=== PATIENT | female | born 1965 | race Caucasian/White ===

== ENCOUNTER 2022-05-21 22:46 | Inpatient (IN) | payer OTHER, SELFPAY ==
[2022-05-21 23:17] VITALS: BP 115/71; PULSE 65; RESP 16; TEMP 36.2; O2SAT 95; BMI 48.5
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
[2022-05-22 06:00] VITALS: BP 132/72; PULSE 61; TEMP 36.4; O2SAT 96
[2022-05-22] MEDS: Perphenazine 4 MG TABLET PO ×2 (09:15→20:45)
[2022-05-22] MEDS: Sertraline HCL 25 MG TABLET PO (09:15)
[2022-05-22] MEDS: Indomethacin 25 MG CAPSULE 50 MG PO ×3 (09:15→20:43)
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
[2022-05-22 19:18] VITALS: BP 141/65; PULSE 65; TEMP 36.3; O2SAT 96
[2022-05-22] MEDS: traZODone HCL 50 MG TABLET PO (20:45)
[2022-05-23] MEDS: hydrOXYzine HCL 25 MG TABLET PO (05:23)
[2022-05-23 06:00] VITALS: BP 131/74; PULSE 67; RESP 18; TEMP 36.3; O2SAT 95
--- NOTE | 2022-05-23 07:20 | PM.IMCN ---
History of Present Illness Data of Consult Service Date: 05/23/22 Primary Care Provider: Unknown Physician HPI Reason for consult: Medical evaluation A 56 years old lady with PMH of psychiatric disorder who was directly admitted to inpatient psych unit. The patient was interviewed for any medical problems which she denies. She reports that she has been having a rash for the last 5-6 days mainly extending in her chest wall and back with significant itching. +She denies any fever chills, shortness of breath, chest pain, nausea, vomiting, joint pain, change in bowel habit or urinary symptoms. Hospitalist team was asked to evaluate the patient for medical problems. Review of Systems Review of Systems: No fever, chills or weakness No chest pain, palpitation No shortness of breath or coughing No abdominal pain, nausea or vomiting No urinary symptoms Generalized rash to her trunk PMFSH Medical History Psychotic disorder Social History Household Members: None Housing: Apartment Do you presently have visiting nurse or other home services: No Patient Tobacco Use Status: Never used Tobacco Use of substances other than those prescribed or required for medical reasons: No Currently Displaying Signs/Symptoms of Drug Intoxication Withdrawal: No Have you been hit, kicked, punched, or otherwise hurt by someone within the past year? If so, by whom?: No Spiritual Healthcare Practices: N/A Confucianist Healthcare Practices: N/A Cultural Healthcare Practices: N/A Advance Directives: No Advance Directives Information Provided: No Advance Directives on File: No Do you have thoughts of harming others: None Do you have a plan to hurt others: No Plan Recently lost weight without trying: No Eating poorly because of decreased appetite: No Nutrition Risks: No Nutritional Risk Patient : No : No Poor oral hygiene: No Meds Allergies Allergy/AdvReac Type Severity Reaction Status Date / Time No Known Allergies Allergy Verified 05/21/22 23:08 Active Medications: Current Medications Acetaminophen (Acetaminophen 325 Mg Tablet) 650 mg PO Q6H PRN PRN Reason: Headache/Pain Mild Scale (1-3) Al Hydroxide/Mg Hydroxide (Magnesium Hydrox/Alum Hydrox 30 Ml Oral.Susp) 30 ml PO Q6H PRN PRN Reason: Heartburn/Nausea Diphenhydramine HCl (Diphenhydramine Hcl 25 Mg Tablet) 50 mg PO Q4H PRN PRN Reason: agitation Haloperidol (Haloperidol 5 Mg Tablet) 5 mg PO Q4H PRN PRN Reason: agitation Hydroxyzine HCl (Hydroxyzine Hcl 25 Mg Tablet) 25 mg PO Q6H PRN PRN Reason: Anxiety Last Admin: 05/23/22 05:23 Dose: 25 mg Indomethacin (Indomethacin 25 Mg Capsule) 50 mg PO TID [facility] Last Admin: 05/22/22 20:43 Dose: 50 mg Lorazepam (Lorazepam 1 Mg Tablet) 2 mg PO Q4H PRN PRN Reason: agitation Magnesium Hydroxide (Milk Of Magnesia 30 Ml Oral.Susp) 30 ml PO DAILY PRN PRN Reason: Constipation Nicotine Polacrilex (Nicotine Polacrilex 2 Mg Gum) 4 mg BUCCAL Q2H PRN PRN Reason: Nicotine Cravings Ondansetron HCl (Ondansetron Odt 4 Mg Tab.Rapdis) 4 mg TRANSLINGU TID PRN PRN Reason: nausea/vomiting Perphenazine (Perphenazine 8 Mg Tablet) 8 mg PO BEDTIME [facility] Sertraline HCl (Sertraline Hcl 25 Mg Tablet) 25 mg PO DAILY [facility] Last Admin: 05/22/22 09:15 Dose: 25 mg Trazodone HCl (Trazodone Hcl 50 Mg Tablet) 50 mg PO BEDTIME PRN PRN Reason: Insomnia Last Admin: 05/22/22 20:45 Dose: 50 mg Home Medications Medication Instructions Recorded Confirmed Last Taken Type indomethacin 50 mg capsule 1 cap PO TID 05/21/22 05/21/22 Unknown History ondansetron 4 mg disintegrating 1 tab PO TID PRN nausea/vomiting 05/21/22 05/21/22 Unknown History tablet perphenazine 4 mg tablet 1 tab PO BID 05/21/22 05/21/22 Unknown History sertraline 25 mg tablet 1 tab PO DAILY 05/21/22 05/21/22 Unknown History Physical Exam Vital Signs and Narrative: Vital Signs: Last Vital Signs Temp 97.4 F 05/23/22 06:00 Pulse 67 05/23/22 06:00 Resp 18 05/23/22 06:00 BP 131/74 05/23/22 06:00 Pulse Ox 95 05/23/22 06:00 O2 Del Method 05/22/22 19:18 BMI result Body Mass Index 48.5 Const: Other: Constitutional : Alert, oriented, not in distress Neck : Normal inspection, Supple Cardiovascular : RRR, no JVP, no lower extremity edema Respiratory : fair bilateral air entry, no crackles, wheezes or rhonchi Gastrointestinal: soft, lax, Normal bowel sounds, Non tender Skin : Warm, Dry, chest wall, abdomen and back macules with no surrounding erythema or drainage Neurological : Alert & oriented x3, No focal deficit , CN 2-12 within normal Assessment and Plan (1) Psychotic disorder: Status: Acute Plan A 56 years old lady with PMH of psychiatric disorder who was directly admitted to inpatient psych unit. Skin rash Seems to be an allergic reaction Start Benadryl p.o. as needed Psychiatric disorder Followed by Psychiatry team Thank you for the consult, please contact hospitalist team with any further questions.
[2022-05-23] MEDS: Sertraline HCL 25 MG TABLET PO (09:15)
[2022-05-23] MEDS: Indomethacin 25 MG CAPSULE 50 MG PO ×3 (09:15→22:37)
[2022-05-23] MEDS: diphenhydrAMINE HCL 25 MG TABLET PO (15:18)
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
[2022-05-23 18:00] VITALS: BP 136/68; TEMP 36.1
[2022-05-23] MEDS: Magnesium Hydrox/Alum Hydrox 30 ML ORAL.SUSP PO (21:10)
[2022-05-23] MEDS: traZODone HCL 50 MG TABLET PO (22:31)
[2022-05-23] MEDS: Perphenazine 8 MG TABLET PO (22:32)
[2022-05-24 06:00] VITALS: BP 129/69; PULSE 63; RESP 18; TEMP 36.3; O2SAT 96
[2022-05-24] MEDS: hydrOXYzine HCL 25 MG TABLET PO (06:02)
[2022-05-24] MEDS: Indomethacin 25 MG CAPSULE 50 MG PO ×3 (08:05→20:50)
[2022-05-24] MEDS: Sertraline HCL 25 MG TABLET PO (08:06)
[2022-05-24 08:44] LABS: Estimated Average Glucose 120 mg/dL; Hemoglobin A1c % 5.8 %
[2022-05-24 08:46] LABS: Cholesterol 150 mg/dL; HDL Cholesterol 27 mg/dL; LDL Cholesterol Calculated 109 mg/dl; Triglycerides 71 mg/dL
[2022-05-24 08:51] LABS: Reflex LDLD? No
--- NOTE | 2022-05-24 13:28 | HO.PSYCHPN ---
Subjective Subjective Date of Service: 05/24/22 Reason For Visit: Psychosis Interim History: seen with Roads Supervisor Pt says no AH, no SI. Pt says she did knock on peoples doors (she said was not at 3am; Sister says pt was knocking on doors at late night) but only because she got stung by a wasp and felt confused. She denies med side-effects, including making her tired during the day since she works. She would like to discharge. Mental Status Exam Mental Status Exam Narrative: Pt is alert and oriented; behavior is cooperative and calm; patient is not in distress; dressed in casual attire with unkempt hair but adequate hygiene; mood is described as ok and affect constricted, anxious; eye contact appropriate; Speech is normal rate, volume and prosody and not pressured; no psychomotor agitation/retardation present; thought process is somewhat scattered, but goal directed; Thought content is on when she will discharge; otherwise pertinent to relevant topics when asked; no delusional content or paranoid ideations expressed; denies any SI or HI; denies any AVH. Patients insight and judgment are impaired. Diagnostics Vital Signs (24Hr): Vital Signs - 24 hr 05/23/22 18:00 05/24/22 06:00 Temperature 97 F 97.4 F Pulse Rate 63 Respiratory Rate 18 Blood Pressure 136/68 129/69 Pulse Oximetry 96 BMI result Body Mass Index 48.5 Labs Labs: Laboratory Results - last 48 hr 05/24/22 05/24/22 08:20 08:20 Estimat Average Glucose 120 Hemoglobin A1c % 5.8 Triglycerides 71 Cholesterol 150 LDL Cholesterol, Calc 109 HDL Cholesterol 27 Medications Medications Current Medications Acetaminophen (Acetaminophen 325 Mg Tablet) 650 mg PO Q6H PRN PRN Reason: Headache/Pain Mild Scale (1-3) Al Hydroxide/Mg Hydroxide (Magnesium Hydrox/Alum Hydrox 30 Ml Oral.Susp) 30 ml PO Q6H PRN PRN Reason: Heartburn/Nausea Last Admin: 05/23/22 21:10 Dose: 30 ml Diphenhydramine HCl (Diphenhydramine Hcl 25 Mg Tablet) 50 mg PO Q4H PRN PRN Reason: agitation Diphenhydramine HCl (Diphenhydramine Hcl 25 Mg Tablet) 25 mg PO Q8H PRN PRN Reason: Itching Haloperidol (Haloperidol 5 Mg Tablet) 5 mg PO Q4H PRN PRN Reason: agitation Hydroxyzine HCl (Hydroxyzine Hcl 25 Mg Tablet) 25 mg PO Q6H PRN PRN Reason: Anxiety Last Admin: 05/24/22 06:02 Dose: 25 mg Indomethacin (Indomethacin 25 Mg Capsule) 50 mg PO TID [facility] Last Admin: 05/24/22 08:05 Dose: 50 mg Lorazepam (Lorazepam 1 Mg Tablet) 2 mg PO Q4H PRN PRN Reason: agitation Magnesium Hydroxide (Milk Of Magnesia 30 Ml Oral.Susp) 30 ml PO DAILY PRN PRN Reason: Constipation Nicotine Polacrilex (Nicotine Polacrilex 2 Mg Gum) 4 mg BUCCAL Q2H PRN PRN Reason: Nicotine Cravings Ondansetron HCl (Ondansetron Odt 4 Mg Tab.Rapdis) 4 mg TRANSLINGU TID PRN PRN Reason: nausea/vomiting Perphenazine (Perphenazine 8 Mg Tablet) 8 mg PO BEDTIME [facility] Last Admin: 05/23/22 22:32 Dose: 8 mg Sertraline HCl (Sertraline Hcl 25 Mg Tablet) 25 mg PO DAILY [facility] Last Admin: 05/24/22 08:06 Dose: 25 mg Trazodone HCl (Trazodone Hcl 50 Mg Tablet) 50 mg PO BEDTIME PRN PRN Reason: Insomnia Last Admin: 05/23/22 22:31 Dose: 50 mg Allergies Allergies Allergy/AdvReac Type Severity Reaction Status Date / Time No Known Allergies Allergy Verified 05/21/22 23:08 Assessment & Plan Assessment & Plan (1) Psychotic disorder: Status: Acute Code(s): F29 - Unspecified psychosis not due to a substance or known physiological condition Plan Patient seen with general internal medicine physician Patient is a 56-year-old Emirati-speaking female with history of mood lability who presents to [facility] ED with both her daughter and sister, who called crisis reporting patient is disorganized.? Patient assessed at [facility] ED where it was documented that Patient was found was found thrashing and rolling on the ground screaming when police brought her in.? Crisis note reports that once patient was in the ED, she was sitting calmly.? Here on M 5, patient is also sitting calmly and is cooperative, calm and with appropriate behavior.? Her thought process is mostly organized however general internal medicine physician says that her explanation things was somewhat scattered. Patient She denies any auditory hallucinations, visual hallucinations or aggressive behavior; She denies any SI ( Never ), or any hx of self-harm.? Patient also denies any paranoid worries about people following her or out to get her.? This is in contrast to Crisis note which reports information given by patient's sister Dolly and daughter Marni who say that patient has been aggressive towards the family, delusions, AH, anxiety and panic attacks.? The say she has not taking medications since 2019.? They also say that patient has auditory hallucinations and has paranoid delusions that people are out to get her. Patient is somewhat a poor historian and says she has been taking her medications up until this Monday; however review of prescriptions seems to indicate that none has been filled for quite some time. 05/23 Patient is calm, in behavioral control. Continues to deny any AVH; denies SI; denies paranoid thoughts. Patient signed a release of information to talk with son, daughter and sister so will get collateral Plan: CV Q 15 minute checks , Perphenazine 8 mg q.h.s. (has been on this in the past, reportedly helpful; Will switch dosing to bedtime since patient complains of daytime sedation Will dc Zoloft for now; while patient may needed eventually, it is currently to low-dose to be helpful and did not want a risk triggering emeli Continue indomethacin Will need collateral Patient educated on: diagnosis I spent minutes with the patient and/or on the patient floor today, greater than?50% of which was spent counseling/coordinating care. Patient educated on: diagnosis and medication risk/benefits Informed Consent: further education needed Reason for contiued inpatient stay Substantial Risk for: stable for discharge
[2022-05-24 18:00] VITALS: BP 95/60; PULSE 88; RESP 18; TEMP 36.1; O2SAT 99
[2022-05-24] MEDS: traZODone HCL 50 MG TABLET PO (20:50)
[2022-05-24] MEDS: Perphenazine 8 MG TABLET PO (20:52)
[2022-05-25 05:10] VITALS: BP 126/70; PULSE 60; TEMP 35.8; O2SAT 95
[2022-05-25] MEDS: Sertraline HCL 25 MG TABLET PO ×2 (08:17→10:11)
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
[2022-05-25] MEDS: diphenhydrAMINE HCL 25 MG TABLET PO ×2 (10:11→22:25)
[2022-05-25] MEDS: Hydrocortisone 1 % Cream 28.35 GM TUBE 1 APPL TOPICAL (15:01)
[2022-05-25 18:00] VITALS: BP 132/65; PULSE 63; RESP 18; TEMP 36.4; O2SAT 97
[2022-05-25] MEDS: Milk of Magnesia 30 ML ORAL.SUSP PO (18:14)
[2022-05-25] MEDS: traZODone HCL 50 MG TABLET PO (22:24)
[2022-05-25] MEDS: Perphenazine 4 MG TABLET PO (22:24)
[2022-05-26 06:32] VITALS: BP 133/62; PULSE 64; RESP 14; TEMP 36.2; O2SAT 97
[2022-05-26 07:00] VITALS: BMI 48.5
[2022-05-26] MEDS: Hydrocortisone 1 % Cream 28.35 GM TUBE 1 APPL TOPICAL ×2 (09:33→19:29)
[2022-05-26] MEDS: Sertraline HCL 50 MG TABLET PO (09:33)
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
[2022-05-26] MEDS: diphenhydrAMINE HCL 25 MG TABLET PO ×2 (14:47→20:38)
--- NOTE | 2022-05-26 17:41 | PM.PSYDC ---
DS: Providers Provider Date of Service: 05/27/22 Date of admission: 05/21/22 22:46 Date of discharge: 05/27/22 Primary care physician: Unknown Physician Attending physician on admission: Paco Campos Consults: 05/22/22 13:56 Consult to Hospitalist Routine Consulting Provider: Hospitalist Reason For Exam: admission physical 05/26/22 10:05 Consult to Infectious Diseases Stat Consulting Provider: Blank Martinez Reason for consultation: Rash on upper torso; infection control thought chickenpox Has provider been notified: Yes Attending physician on discharge: Paco Campos DS: Diagnosis Discharge Diagnosis (1) Chronic post-traumatic stress disorder (PTSD): Status: Acute DS: Medications Discharge Medications Home Medications: Home Medications Medication Instructions Recorded Confirmed ondansetron 4 mg disintegrating 1 tab PO TID PRN nausea/vomiting 05/21/22 05/21/22 tablet Previous Rx's Medication Instructions Recorded perphenazine 4 mg tablet 4 mg PO BEDTIME 30 days #30 tabs 05/26/22 sertraline 25 mg tablet 75 mg PO DAILY 30 days #90 tabs 05/26/22 Mental Status Exam Mental Status Exam Narrative: Pt is alert and oriented; behavior is cooperative and calm; patient is not in distress; dressed in hospital attire with brushed hair and adequate hygiene; mood is described as good and affect brighter, calm; eye contact appropriate; Speech is normal rate, volume and prosody and not pressured; no psychomotor agitation/retardation present; thought process is organized and goal directed; Thought content is on when she will discharge; otherwise pertinent to relevant topics when asked; no delusional content or paranoid ideations expressed; denies any SI or HI; denies any AVH. Patients insight and judgment are fair. Data Data Completed and Pending Completed studies during hospitalization [Text1]: 05/24/22 05/24/22 05/26/22 08:20 08:20 12:21 Estimat Average Glucose 120 Hemoglobin A1c % 5.8 Triglycerides 71 Cholesterol 150 LDL Cholesterol, Calc 109 HDL Cholesterol 27 VZV IgG Antibody Pending DS: Summary Hospital Course Hospital Course: HPI: Patient is a 56-year-old Maori-speaking female with history of mood lability who presents to [facility] ED with both her daughter and sister, who called crisis reporting patient is disorganized.? Patient assessed at [facility] where it was documented that Patient was found was found thrashing and rolling on the ground screaming when police brought her in.? Crisis note reports that once patient was in the ED, she was sitting calmly.? Here on M 5, patient is also sitting calmly and is cooperative, calm and with appropriate behavior.? Her thought process is mostly organized however spanish interpreter says that her explanation things was somewhat scattered. Patient She denies any auditory hallucinations, visual hallucinations or aggressive behavior; She denies any SI ( Never ), or any hx of self-harm.? Patient also denies any paranoid worries about people following her or out to get her.? This is in contrast to Crisis note which reports information given by patient's sister Dolly and daughter Marni who say that patient has been aggressive towards the family, delusions, AH, anxiety and panic attacks.? The say she has not taking medications since 2019.? They also say that patient has auditory hallucinations and has paranoid delusions that people are out to get her. Hospital course: On admission, patient was calm and cooperative. She denied any SI, HI or AVH or any history of such. Initially she was a little scattered in her explanations but this resolved quickly. Throughout her stay she remained in good behavioral and impulse control and was organized in both speech and behavior without any psychotic or manic symptoms. Initially She was restarted perphenazine 8 mg which was switched to bedtime since she complained of daytime sedation. However, patient had reasonable explanations for the behaviors that her sister and daughter initially reported were problematic. Patient's son provided collateral which seemed to fit little more clearly with patient's presentation; he described that patient is typically stable, off medications and only intermittently does she gets stressed to the point where she gets briefly dysregulated. He says that stress triggers her history of trauma/PTSD but that she is typically able to calm herself down and dysregulation resolves. Patient's son says that his mother's sister and daughter are abrupt and harsh with patient, exacerbated her dysregulation and that they do not try and help for, but rather had a knee jerk reaction and immediately say she needs to go to the hospital whenever she gets emotional. He says she is never heard voices. District Associate Judge discussed this with patient who agrees that this is the case and agrees to increase Zoloft to help address her stress/anxiety/PTSD. District Associate Judge also agreed to lower her perphenazine. Patient reported being in a good mood and feelings stable to return home. Her speech and behavior remain organized and she continues to be without any psychotic, delusional or manic symptoms, SI, HI or AVH District Associate Judge decided to leave some perphenazine on for now, though at lower dose, as patients thought process was a little scattered on admission and leave it up to her outpatient provider whether or not to taper and discontinue. Patient feels that medications will help and she will continue to take them.? She is future oriented looking forward to getting back to work.?Patient is not in imminent risk for harm to self or others and her request for discharge honored. On the unit, patient shared that she had gotten a rash prior to admission but that it was still present; Dr. Martinez consulted and diagnosed rash to be Pityriasis rosea; she says supportive care only, no isolation needed. Time spent discussing smoking cessation with patient: 3 to 10 minutes Status at Discharge Functional status at discharge: independent ambulation Overall status at discharge: patient is back to baseline Time Spent with Patient Time attestation: Total time spent providing and/or coordinating discharge services: Time spent: Less than 30 minutes Discharge Plan Discharge Patient Disposition: Home, Self-Care Discharge Diagnosis: PTSD, chronic with acute exacerbation, in full remission Referrals: Terapia: Johanna Butterfield [Other] - 06/01/22 3:00 pm (Esta es onel masoud de telesalud) Psiquiatr?a: Chey Soto [Other] - 06/14/22 9:30 am (Esta es onel masoud de telesalud por video) [facility] [Other] - 1 Week (Usted kaur sido referido a [facility]. Llame al n?davon anterior para verificar el estado de verma referencia) Josi Howell MD [Physician] - 05/30/22 9:30 am (IN OFFICE ) Discharge Medications: New sertraline 25 mg Tablet 75 mg PO DAILY 30 Days Qty: 90 0RF perphenazine 4 mg Tablet 4 mg PO BEDTIME 30 Days Qty: 30 0RF Continued ondansetron 4 mg tablet,disintegrating 1 tab PO TID PRN (Reason: nausea/vomiting) Discontinued perphenazine 4 mg tablet 1 tab PO BID indomethacin 50 mg capsule 1 cap PO TID sertraline 25 mg tablet 1 tab PO DAILY Discharge Orders: Discharge Order (Routine); Ordered 05/27/22 Ordered By: Paco Campos Diet: Regular diet Activity on Discharge: As tolerated Stand Alone Forms: Patient Portal Discharge page Care Plan Goals: Maintain mood and safe behaviors Take medications as prescribed Practice coping skills Continue with outpatient providers and reach out to them as needed Health Concerns: Mood stability and behaviors Plan of Treatment: Follow up with your psychiatric provider and other outpatient providers regarding above concerns Take medications as prescribed Assessment: Risk assessment at time of discharge:? Patient was interviewed prior to discharge and found to be fully oriented and without any SI or HI. Patient has insight and demonstrates good judgment in terms of wanting to pursue treatment. Patient is not in imminent risk of harm to self or others and has a safety plan that includes presenting to the closest ER or calling 911 if feeling unsafe.? Patient has been observed closely by nursing and unit staff throughout admission; patient has not engaged in any behaviors that suggest dangerousness to self or others and has demonstrated appropriate behaviors and impulse control
[2022-05-26 18:00] VITALS: BP 128/78; PULSE 67; RESP 16; TEMP 36.6; O2SAT 97
[2022-05-26] MEDS: Perphenazine 4 MG TABLET PO (20:38)
[2022-05-26] MEDS: traZODone HCL 50 MG TABLET PO (20:38)
[2022-05-26] MEDS: Indomethacin 25 MG CAPSULE 50 MG PO (20:38)
[2022-05-27] MEDS: Sertraline HCL 25 MG TABLET 75 MG PO (08:16)
[2022-05-27] MEDS: Hydrocortisone 1 % Cream 28.35 GM TUBE 1 APPL TOPICAL (08:17)
[2022-05-27 09:14] VITALS: BP 138/77; PULSE 68; RESP 18; TEMP 36.7; O2SAT 98
--- NOTE | 2022-05-27 13:17 | P.CNID_ITS ---
History of Present Illness Data of Consult Service Date: 05/27/22 Requesting physician: Paco Campos Primary Care Provider: Unknown Physician HPI Reason for consult: rash She presents for psychotic episode to -5. She has noted itchy rash particularly over breasts and abdomen over last 5-6 days She denies fever or chills. She has not had scabies. Review of Systems Review of Systems: Yes all other systems are reviewed and are negative PMFSH Past Medical History Medical History (Updated 05/27/22 @ 13:20 by Blank Martinez MD) Chronic post-traumatic stress disorder (PTSD) Psychotic disorder Rash Family History Family history: reviewed and not pertinent Social History Social History Household Members: None Housing: Apartment Do you presently have visiting nurse or other home services: No Patient Tobacco Use Status: Never used Tobacco Use of substances other than those prescribed or required for medical reasons: No Currently Displaying Signs/Symptoms of Drug Intoxication Withdrawal: No Have you been hit, kicked, punched, or otherwise hurt by someone within the past year? If so, by whom?: No Spiritual Healthcare Practices: N/A Anabaptism Healthcare Practices: N/A Cultural Healthcare Practices: N/A Advance Directives: No Advance Directives Information Provided: No Advance Directives on File: No Do you have thoughts of harming others: None Do you have a plan to hurt others: No Plan Recently lost weight without trying: No Eating poorly because of decreased appetite: No Nutrition Risks: No Nutritional Risk Patient : No : No Poor oral hygiene: No service: No Sexual orientation: Did not discuss Meds Allergies Allergy/AdvReac Type Severity Reaction Status Date / Time No Known Allergies Allergy Verified 05/21/22 23:08 Active Medications: Current Medications Acetaminophen (Acetaminophen 325 Mg Tablet) 650 mg PO Q6H PRN PRN Reason: Headache/Pain Mild Scale (1-3) Al Hydroxide/Mg Hydroxide (Magnesium Hydrox/Alum Hydrox 30 Ml Oral.Susp) 30 ml PO Q6H PRN PRN Reason: Heartburn/Nausea Last Admin: 05/23/22 21:10 Dose: 30 ml Diphenhydramine HCl (Diphenhydramine Hcl 25 Mg Tablet) 25 mg PO Q8H PRN PRN Reason: Itching Last Admin: 05/26/22 20:38 Dose: 25 mg Hydrocortisone (Hydrocortisone 1 % Cream 28.35 Gm Tube) 1 appl TOPICAL DAILY MOISES; Protocol Last Admin: 05/27/22 08:17 Dose: 1 appl Hydroxyzine HCl (Hydroxyzine Hcl 25 Mg Tablet) 25 mg PO Q6H PRN PRN Reason: Anxiety Last Admin: 05/24/22 06:02 Dose: 25 mg Indomethacin (Indomethacin 25 Mg Capsule) 50 mg PO TID MOISES Last Admin: 05/27/22 08:45 Dose: Not Given Magnesium Hydroxide (Milk Of Magnesia 30 Ml Oral.Susp) 30 ml PO DAILY PRN PRN Reason: Constipation Last Admin: 05/25/22 18:14 Dose: 30 ml Nicotine Polacrilex (Nicotine Polacrilex 2 Mg Gum) 4 mg BUCCAL Q2H PRN PRN Reason: Nicotine Cravings Ondansetron HCl (Ondansetron Odt 4 Mg Tab.Rapdis) 4 mg TRANSLINGU TID PRN PRN Reason: nausea/vomiting Perphenazine (Perphenazine 4 Mg Tablet) 4 mg PO BEDTIME MOISES Last Admin: 05/26/22 20:38 Dose: 4 mg Sertraline HCl (Sertraline Hcl 25 Mg Tablet) 75 mg PO DAILY [facility] Last Admin: 05/27/22 08:16 Dose: 75 mg Trazodone HCl (Trazodone Hcl 50 Mg Tablet) 50 mg PO BEDTIME PRN PRN Reason: Insomnia Last Admin: 05/26/22 20:38 Dose: 50 mg Home Medications Medication Instructions Recorded Confirmed Last Taken Type ondansetron 4 mg disintegrating 1 tab PO TID PRN nausea/vomiting 05/21/22 05/21/22 Unknown History tablet Physical Exam Vital Signs: Vital Signs: Last Vital Signs Temp 98.0 F 05/27/22 09:14 Pulse 68 05/27/22 09:14 Resp 18 05/27/22 09:14 BP 138/77 05/27/22 09:14 Pulse Ox 98 05/27/22 09:14 O2 Del Method 05/27/22 09:14 BMI result Body Mass Index 48.5 Const: General: cooperative HEENT: Head: Yes normal to inspection Face and sinus: Yes normal facial exam Mouth: Normal oral and palatal mucosa present Teeth and gingiva: dentition normal Eyes: General: appearance normal, both eyes and all related structures Pup ils: Equal, round and reactive pupils present Resp: Effort & Inspection: normal respiratory effort Cardio: Rate: regular rate Rhythm: regular rhythm GI: Palpation (GI): Soft to palpation and nontender : General: Yes no CVA tenderness Back/Spine/Pelvis: Back: no CVA tenderness Skin: Other: macular rash with slight white scaly,oblong shape with largest shape 1 cm inner left thigh,itchy,no vesicles Neuro: General: moves all extremities Cranial nerves: Yes Equal, round and reactive pupils present Extrem: General: Yes normal to inspection Psych: Appearance: grossly normal Assessment and Plan (1) Rash: Status: Acute Seems most consistent with pityriasis rosea or other viral syndrome HIV less likely Plan Would give comfort meds,benadryl/cortisone. This is not varicella or monkeypox or COVID so no isolation needed or specific treatment
--- NOTE | 2022-05-27 16:42 | HO.PSYCHPN ---
Subjective Subjective Date of Service: 05/27/22 Reason For Visit: Psychosis Subjective Notes: Conditional Voluntary Healthcare Proxy: No Guardianship: No Medical Problems Affecting Mental Status: No Interim History: Coverage: Pt planning discharge today. No questions or problems which needed to be addressed prior to pts departure. Aftercare plans are in place. No current safety risks. Medication Compliance: Yes Side effects from medications: No Attending Groups: No Review of Systems Acute medical concerns: No Medical Review of Systems: unchanged Mental Status Exam Mental Status Exam Patient Appearance: Appropriate Patient Orientation: Person, Place, Time and Situation Level of Consciousness: Alert Patient Behavior: Talkative and Good Eye Contact Mood Description: Calm Affect Description: Calm Patient Cognition Impaired: No Ability to Follow Directions: Good Speech Pattern: Spontaneous Speech Hallucinations: None Delusions: Not Present Thought Process: Intact Thought Content: positive for Intact Judgement: Good Diagnostics Vital Signs (24Hr): Vital Signs - 24 hr 05/26/22 18:00 05/27/22 09:14 Temperature 97.9 F 98.0 F Pulse Rate 67 68 Respiratory Rate 16 18 Blood Pressure 128/78 138/77 Pulse Oximetry 97 98 Oxygen Delivery Method Room Air Room Air BMI result Body Mass Index 48.5 Medications Allergies Allergies Allergy/AdvReac Type Severity Reaction Status Date / Time No Known Allergies Allergy Verified 05/21/22 23:08 Assessment & Plan Assessment & Plan (1) Chronic post-traumatic stress disorder (PTSD): Status: Acute Code(s): F43.12 - Post-traumatic stress disorder, chronic Plan Discharge today. I spent minutes with the patient and/or on the patient floor today, greater than?50% of which was spent counseling/coordinating care. Informed Consent: understands Reason for contiued inpatient stay Substantial Risk for: stable for discharge
== END 2022-05-27 14:40 | disposition home or self-care (01) | DRG 755 ==
PROVIDERS: Admitting Provider Psychiatry & Neurology Psychiatry; Visit Provider Psychiatry & Neurology Psychiatry
DX: F43.12 Post-traumatic stress disorder, chronic (principal); F29 Unspecified psychosis not due to a substance or known physiological condition; R21 Rash and other nonspecific skin eruption; Z79.899 Other long term (current) drug therapy
CPT/HCPCS: 36415; 80061; 83036; 86787; Q0163